=== PATIENT | male | born 1990 | race African-American/Black ===

== ENCOUNTER 2022-08-25 23:15 | Emergency (ER) | payer MEDICAID ==
[~2022-08-25] VITALS: Ht 175.3 cm; Wt 68.9 kg
[2022-08-26] MEDS ORDERED: AMOX500T3 PO (02:25)
[2022-08-26] MEDS ORDERED: KETOROLAC TROMETH 60MG/2ML VIAL IM ONE (02:30)
[2022-08-26 03:00] VITALS: BP 123/77
== END 2022-08-26 03:06 | disposition home or self-care (01) ==
LOC: ER 23:15
DX: J02.9 Acute pharyngitis, unspecified (principal)
CPT/HCPCS: 96372; 99283; J1885